=== PATIENT | male | born 1980 | race Caucasian/White ===

== ENCOUNTER 2022-12-03 13:35 | Outpatient (CLI) | payer BC, SELFPAY ==
[2022-12-03 19:15] LABS: Kit Draw Collected
== END 2022-12-03 13:36 | disposition home or self-care (01) ==
LOC: ANHGOSHLAB 13:37
PROVIDERS: PCP Family Medicine; Visit Provider Nurse Practitioner Family
DX: R53.83 Other fatigue (principal); E55.9 Vitamin D deficiency, unspecified; E78.5 Hyperlipidemia, unspecified
CPT/HCPCS: 36415

== ENCOUNTER 2022-12-22 08:18 | Outpatient (CLI) | payer BC, SELFPAY ==
--- NOTE | 2022-12-28 19:24 | WPDHOMESLEEP ---
Sleep Study - Home Unattended Date of Study: 12/22/22 Ordering Provider: Carla Cohen NP Interpreting Provider: Kelsi Shah, DO Home Sleep Study Type: Apnea Link Air Height: 1.8 m Weight: 103.419 kg Body Mass Index: 31.8 Neck Circumference (inches): 16.25 [place]: 4 Reason for Sleep Study Poor sleep, loud snoring Sleep History The patient is a 42-year-old male with hyperlipidemia and vitiligo that had a sleep study ordered by his primary care for evaluation of sleep apnea. The patient frequently awakens from sleep short of breath. He rarely awakens at night with heartburn, belching or cough. He constantly snores loud enough that others complain. He frequently has trouble sleeping when he has a cold. He occasionally wakes up gasping for air throughout the night. He frequently has breathing problems at night observed by himself or others. He occasionally sweats excessively at night. He occasionally has heart palpitations or irregular heartbeats during the night. He rarely falls asleep during the day but never while driving. He denies cataplexy and hypnagogic / hypnopompic hallucinations. He occasionally has trouble at school or work due to sleepiness. He rarely feels unable to move while waking up or falling asleep. He occasionally feels afraid of going to sleep. He denies having nightmares. He denies remembering his dreams. He frequently has thoughts racing through his mind. He denies feeling sad or depressed. He occasionally has anxiety. He rarely has muscular tension. He occasionally notices parts of his body jerk. He occasionally kicks during the night. He occasionally has crawling and aching feelings in his legs but rarely has leg pain during the night. He denies grinding his teeth during sleep and denies awakening with morning jaw pain. He denies being bothered by pain during the day and denies being awakened by pain during the night. He rarely wakes up feeling stiff in the morning. He rarely wakes up with sore or achy muscles. He rarely wakes up with pain in the neck, spine and other joints. The patient goes to bed between 8-9 p.m. on weekdays and between 9-10 p.m. on the weekends. He is able to fall asleep within 15 minutes. He is unsure if he wakes up throughout the night. He typically gets 6-9 hours of sleep per night. He currently lives with his spouse and kids. He does not consume any caffeinated beverages within 2 hours of bedtime. He will engage in physical exercise before bedtime. He will watch television before falling asleep. He denies taking naps in the afternoon or the evening. He does drink coffee daily. He smokes cigars once weekly. He consumes alcohol once weekly. He denies cigarette and recreational drug use. [facility] Past Medical History Medical History Family history of hemochromatosis Hyperlipidemia Vitiligo Surgical History Surgical History H/O repair of left rotator cuff (~1999) [place] teeth extracted (~2011) Family History Family History Father Hypertension Family history of diabetes mellitus in first degree relative Grandparent Family history of lung cancer Family history of heart disease in male family member before age 55 Sibling Hemochromatosis, Onset Age: 41 Social History Social History Social History: Caffeine- daily coffee Smoking status: Never smoker Tobacco type: cigars Alcohol intake: current Alcohol use details: once weekly Substance use: never Substance use type: does not use Lack of Transportation: No Lack of Food: Never True Current Housing: I Have Housing Concerned About Future Housing: No Difficulty Paying Gas/Electric Bills: No Difficulty Paying for Meds: No Currently Unemplo
[2022-12-28 19:35] VITALS: BMI 31.8
== END 2022-12-23 09:07 | disposition home or self-care (01) ==
LOC: ANHCSM 08:19
PROVIDERS: PCP Family Medicine; Visit Provider Nurse Practitioner Family
DX: G47.10 Hypersomnia, unspecified (principal); G47.33 Obstructive sleep apnea (adult) (pediatric)
CPT/HCPCS: 95806